=== PATIENT | female | born 1955 | race Caucasian/White ===

== ENCOUNTER → 2021-03-11 14:38 | Outpatient (CLI) | payer MEDICARE, BC, SELFPAY ==
--- NOTE | ~2021-03-11 | MMUS_ITS ---
EXAMINATION: MM diagnostic [facility] BI w shabnam, US breast RT limited HISTORY: Right breast pain at 10:00. Bloody discharge. TECHNIQUE: Bilateral full field and right spot ML, MLO and craniocaudal 3-D tomosynthesis images were performed and synthetic 2-D images were generated. CAD analysis was submitted and interpreted. High resolution right upper outer quadrant breast ultrasound was performed. COMPARISON: 02/10/2019 diagnostic right mammogram and limited right breast ultrasound examination 11/24/2018, 08/17/2017 bilateral digital screening mammogram examinations BREAST PARENCHYMAL COMPOSITION: There are scattered areas of fibroglandular density. FINDINGS: MAMMOGRAPHIC FINDINGS: Focal mild architectural distortion is noted at area of previous biopsy of right breast, upper outer quadrant, likely postoperative scarring. No suspicious mass or architectural distortion, malignant calcification, skin thickening or retractio n or significant new or developing density of either breast is detected otherwise. ULTRASOUND: No suspicious mass or shadowing is detected in the upper outer quadrant of the right breast. IMPRESSION: 1. No mammographic evidence of malignancy 2. Routine annual mammographic screening is recommended. BI-RADS Category 2: Benign finding(s). Reviewed, dictated and finalized at location A. IMPRESSION: 1. No mammographic evidence of malignancy 2. Routine annual mammographic screening is recommended. BI-RADS Category 2: Benign finding(s).
== END ==
PROVIDERS: Visit Provider Obstetrics & Gynecology
DX: N64.52 Nipple discharge (principal)
CPT/HCPCS: 76642; 77062; 77066; G0279

== ENCOUNTER 2022-04-28 10:23 | Outpatient (CLI) | payer MEDICARE, SELFPAY ==
--- NOTE | ~2022-04-28 | MM_ITS ---
EXAMINATION: MM screening [facility] BI w shabnam HISTORY: Screening mammogram TECHNIQUE: Craniocaudal and mediolateral oblique 3-D tomosynthesis images were obtained and synthetic 2-D images were generated. CAD analysis was submitted and interpreted. COMPARISON: 03/11/2021, 02/10/2019, 11/24/2018, 08/17/2017 BREAST PARENCHYMAL COMPOSITION: There are scattered areas of fibroglandular density. FINDINGS: A stable focal asymmetry is present in the middle third of the lower right breast. There is no suspicious mass, calcification, or architectural distortion to suggest malignancy in either breas t. There has been no suspicious interval change. IMPRESSION: 1. No mammographic evidence of malignancy. 2. Recommend routine screening mammography in one year. BI-RADS Category 2: Benign finding(s). Reviewed, dictated and finalized at location A.
== END 2022-04-28 10:24 | disposition home or self-care (01) ==
PROVIDERS: Visit Provider Obstetrics & Gynecology
DX: Z12.31 Encounter for screening mammogram for malignant neoplasm of breast (principal)
CPT/HCPCS: 77063; 77067

== ENCOUNTER 2022-06-24 09:53 | Outpatient (CLI) | payer MEDICARE, SELFPAY ==
--- NOTE | 2022-06-24 | ECG_ITS ---
Measurements Intervals [place] Rate: 66 P: 28 IN: 138 QRS: 14 QRSD: 90 T: 44 QT: 380 QTc: 399 Interpretive Statements SINUS RHYTHM NORMAL ECG NO PREVIOUS ECG AVAILABLE FOR COMPARISON Electronically Signed On 06-24-2022 12:40:58 CDT by Zhou Martin D.O.
[2022-06-24 10:45] LABS: Albumin Level 4.6 g/dL (3.5-5.1); Estimated Glomerular Filt Rate > 60
== END 2022-06-24 09:54 | disposition home or self-care (01) ==
LOC: ANHLAB 09:59
PROVIDERS: PCP Family Medicine; Visit Provider Orthopaedic Surgery
DX: M17.11 Unilateral primary osteoarthritis, right knee (principal); Z01.818 Encounter for other preprocedural examination
CPT/HCPCS: 36415; 82040; 82565; 93005

== ENCOUNTER 2022-07-29 09:39 | Outpatient (CLI) | payer MEDICARE, SELFPAY ==
[2022-07-29 10:56] LABS: Basophils Percent Auto 0.7 % (0.2-1.2); Eosinophils Absolute Auto 0.2 K/mm3 (0-0.3); Eosinophils Percent Auto 2.9 % (0-4.4); Hematocrit 45.4 % (37.0-47.0); Immature Granulocyte Absolute 0.01 K/mm3 (0.00-0.031); Immature Granulocyte Percent A 0.2 % (0-0.5); Lymphocytes Absolute Auto 1.57 K/mm3 (0.9-3.2); Lymphocytes Percent Auto 28.2 % (18.3-44.2); Mean Corpuscular Hemoglobin 30.4 pg (26-34); Mean Corpuscular Volume 91.9 fl (80-100); Mean Platelet Volume 8.9 fl (7.4-10.4); Monocytes Absolute Auto 0.5 K/mm3 (0.1-0.6); Monocytes Percent Auto 9.3 % (2.6-8.5); Neutrophils Absolute Auto 3.3 K/mm3 (1.3-6.7); Neutrophils Percent Auto 58.7 % (45.5-73.1); Platelet Count Result 203 k/mm3 (150-375); Red Blood Count 4.94 M/mm3 (4.2-5.4); White Blood Count 5.6 K/mm3 (4.5-10.0)
[2022-07-29 11:13] LABS: Albumin Level 4.4 g/dL (3.5-5.1); Estimated Glomerular Filt Rate 55; Glucose 114 mg/dL (65-110)
[2022-07-29 11:16] LABS: Hemoglobin A1C 5.9 % (<5.7)
[2022-07-29 11:17] LABS: Urine Cotinine NEGATIVE
== END 2022-07-29 09:40 | disposition home or self-care (01) ==
LOC: ANHSURGERY 09:44
PROVIDERS: PCP Family Medicine; Visit Provider Orthopaedic Surgery
DX: M17.11 Unilateral primary osteoarthritis, right knee (principal); Z01.818 Encounter for other preprocedural examination
CPT/HCPCS: 80307; 82040; 82565; 82947; 83036; 85025; 87081

== ENCOUNTER 2022-08-27 01:50 | Day surgery (SDC) | payer MEDICARE, SELFPAY ==
--- NOTE | 2022-07-29 09:43 | PC.NURSE ---
PRE-OP INSTRUCTIONS, PLEASE READ CAREFULLY Report to the Outpatient Waiting Room, entrance under the green pavilion located off [facility], at time _0600_ on date _08/27/22_. OR Time: _0730_. PACK A SMALL OVER NIGHT BAG AND LEAVE IN THE CAR ALONG WITH YOUR WALKER Time changes happen often and if your time is changed the preop area will call you the afternoon before. - You and your visitor will be asked to self-screen and do not enter if you have any COVID symptoms. - We encourage only one visitor and NO visitors under age 16 are allowed at this time. Your visitor will receive communication by the phone number that is given day of service. - The patient visitor is requested to social distance or may leave the building when not with patient due to restrictions. - A mask is required within the hospital. - VISITING HOURS 8AM-8PM Patients may have clear liquids (water, carbonated beverages, clear teas, apple juice) until 3 hours prior to surgery (0430 AM) with a maximum of 20 ounces. - No food from midnight until time of surgery Take the following medications with a SIP of water the morning of surgery: _NASAL SPRAY & TYLENOL IF NEEDED_ Medications to discontinue per physician _N/A_, Date to take last dose Please no make-up, nail tajik, hairspray, perfume, deodorant, or body powder the day of surgery. No jewelry (including any body piercings) or valuables the day of surgery, leave them at home. Please take a shower or bath the night before, or the morning of, surgery with an antibacterial soap. Wear comfortable, loose fitting clothing. - Jewelry must be removed prior to entering the operating room. Rings and piercings that are not removed may be cut off. - The hospital will not accept responsibility for valuables. - Please leave all valuables, including medications, at home the day of surgery. If you are going home after surgery, a licensed truck driver heavy must drive you home. - NO public transportation without another adult. - We recommend that an adult stay with you for 24 hours following discharge. - We also recommend that you do not drive, make important decision, drink alcoholic beverages, or take any drugs that were not prescribed by your health care provider for at least 24 hours after your discharge time. Follow any additional instructions given to you from your surgeon. TOTAL JOINT CLASS 08/05/22 @ 10 AM [facility] If you or anyone in your household have experienced Covid symptoms in the past week, please notify your surgeon or the nurse liaison at the phone number below for possible testing. Instructions given to _PT & SPOUSE_and asked if any additional questions and then verbalized understanding. Patient advised to call surgeon office or pre surgery nurse liaison [phone] if any additional questions.
[2022-07-29 10:04] VITALS: BP 130/68; PULSE 74; RESP 18; TEMP 37.2; O2SAT 96; BMI 31.3
[2022-08-27] VITALS (14 sets, daily range): BP systolic 106–135; BP diastolic 50–72; PULSE 54–86; RESP 12–20; TEMP 36.2–37.3; O2SAT 89–100
--- NOTE | ~2022-08-27 | XR_ITS ---
EXAMINATION: XR knee RT 2V DATE: 08/27/2022 09:24 INDICATION: Postoperative evaluation following right total knee arthroplasty. TECHNIQUE: Anteroposterior and lateral views of the right knee were obtained. COMPARISON: 05/20/2022 FINDINGS: Right total knee arthroplasty without patellar resurfacing appears well seated and in near anatomic a lignment. No fractures identified. Expected postoperative subcutaneous and intra-articular gas. IMPRESSION: 1. Right total knee arthroplasty, negative for postoperative purposes. Reviewed, dictated and finalized at location A. AOPERATIVE NEURO TECH
[2022-08-27] MEDS: LACTATED RINGERS 1,000 ML 30 ML IV CONT ×2 (06:45→09:10)
[2022-08-27] MEDS: ACETAMINOPHEN 500 MG TABLET 1000 MG PO (07:00)
[2022-08-27] MEDS: TRANEXAMIC ACID 1,000MG/ISO100 1,000 MG/100 ML BAG 200 MG IVPB (07:00)
--- NOTE | 2022-08-27 07:11 | P.PNAN_ITS ---
Anes - Initial Pre Proc Eval Procedure: Operation Date: 08/27/22 07:30 Proposed Procedures p Right Total Knee Arthroplasty - Dominik Holcomb MD Date/Time: 08/27/22 07:11 Surgeon: Dominik Holcomb MD Pre Op Diagnosis: Prim O A Rt Knee Patient Data Age: 67 Gender: F Height: 1.66 m Weight: 86.7 kg Last Vital Signs Temp 37.2 C 07/29/22 10:04 Pulse 74 07/29/22 10:04 Resp 18 07/29/22 10:04 BP 130/68 07/29/22 10:04 Pulse Ox 96 07/29/22 10:04 O2 Del Method Room Air 07/29/22 10:04 Allergies Allergy/AdvReac Type Severity Reaction Status Date / Time adhesive tape AdvReac SKIN Verified 08/27/22 07:06 IRRITATION Home Medications Medication Instructions Recorded Confirmed Type cetirizine 10 mg capsule (Zyrtec) 10 mg PO DAILY PRN Congestion 05/20/22 08/27/22 History fluticasone propionate 50 1 spray intranasal DAILY PRN 05/20/22 08/27/22 History mcg/actuation nasal Congestion spray,suspension pseudoephedrine HCl 30 mg tablet 30 mg PO Q4-6H PRN Congestion 05/20/22 08/27/22 History (Sudafed) triamcinolone acetonide 0.1 % 1 applic topical BID PRN Skin 05/20/22 08/27/22 History topical cream Irritation acetaminophen 500 mg tablet 1,000 mg PO Q6H PRN pain 07/29/22 08/27/22 History Patient hx anesthesia problems: none Family hx anesthesia problems: none Results Review: All pre-operative results and documents have been reviewed as part of the pre- operative evaluation. [facility] Past Medical History Medical History (Updated 08/27/22 @ 07:12 by Duc Birmingham MD) Arthritis Surgical History Surgical History History of foot surgery Bunion & Hammer Toe History of surgery of uterus (~2014) Uterine Cancer Hx of cervical spine surgery (~1997) Upper Spine/Neck Social History Social History Smoking status: Never smoker Second hand tobacco smoke exposure: No Additional smoking assessment comments: PT DENIES ALL FORMS OF TOBACCO USE Alcohol intake: never Substance use type: does not use Living arrangements: with family Spiritual care concerns: No Anes - Eval Final PreProcedure Day of Procedure 08/27/22 07:11 Patient weight: obese Heart: regular rate and rhythm Lungs: clear to auscultation Airway: Mallampati scale class II Neurological: alert and oriented Last oral intake: >/= 8 hours ASA classification: III Emergent: no Anesthetic plan: proceed Anesthesia type and monitoring: general LMA and standard monitoring Results Review: All pre-operative results and documents have been reviewed as part of the pre- operative evaluation. Informed Consent: The patient's anesthetic plan and its attendant risks and benefits were discussed with the patient/family/POA. Questions were solicited and answers provided to the satisfaction of the patient/family/POA.
--- NOTE | 2022-08-27 07:17 | WPDHPUPDATE1 ---
History and Physical Update Update Date/Time: 08/27/22 07:17 History and Physical has been reviewed, including an updated exam of the patient. There are NO changes in the patient's condition. Risks, benefits, and alternatives have been discussed and questions answered. Patient agrees to proceed with procedure.
[2022-08-27] MEDS: ceFAZolin 2 GM/D5W 50 ML 2 GM/50 ML BAG IVPB ×3 (07:33→23:03)
--- NOTE | 2022-08-27 07:39 | WPDANESPNB ---
Anes - Peripheral Nerve Block Date/Time: 08/27/22 07:39 I have discussed with the patient/family/POA the placement of a peripheral nerve block for post-operative pain management, including associated risks, benefits, complications, and side effects. Alternative methods of post-operative analgesia were detailed. Questions were solicited and answers provided to the satisfaction of the patient/family/POA. Time-Out: A pre-procedural Time-Out was completed immediately before starting the procedure and confirmed: Patient Identification, Site, Procedure, Patient Position and the Availability of Requisite Equipment. Clinical Indications: Acute post-operative pain management requested by the operative surgeon. Nerve Block Insertion Note Anes-nerve block: adductor canal right Patient position: supine Skin prep: chlorhexidine Needle: 22 gauge, stimulating, insulated echogenic needle. Needle length: 80 mm Technique: ultrasound Technique comment: mid2mg [id number] Injectate: bupivacaine 0.5% with epi 5 mcg/ml (30ml no epi) and dexamethasone (mg) (4) Observations: tolerated well Complications: none Procedure start time:: 722 Procedure end time:: 729
[2022-08-27] MEDS: fentaNYL CITRATE INJ (*CRX) 100 MCG/2 ML VIAL 25 MCG IV PUSH ×6 (09:17→10:12)
--- NOTE | 2022-08-27 10:28 | P.OP_ITS ---
Procedure Note - Detailed Date of Procedure 08/27/22 Pre-op Diagnosis Prim O A Rt Knee Post-op Diagnosis Same Procedure Performed Total knee arthroplasty, right. Surgeon Dominik Holcomb MD Item Repair Manager Anjana Hunt PA-C Anesthesia General and Regional (subsartorial block) Findings Excellent bone quality. Mild medial release. 1mm downsize of the femur. 3 degree external rotation on the femur. 5 degree valgus. 8 mm distal femoral resection. 5 degree posterior slope. Description of Procedure The patient was brought to the operating room. A general anesthetic was administered. The leg was prepped and draped in the usual sterile fashion. The limb was elevated and the tourniquet inflated to 300 mmHg. A longitudinal incision was created along the medial border of the patella and patellar tendon, and a trivector approach to the knee was performed. A mild medial release was taken. The knee was then flexed. The osteophytes were carefully removed. The intramedullary guide was placed in the femoral canal. The distal femoral resection was then taken with the oscillating saw. The collateral ligaments were carefully protected. The tibia was carefully exposed. The jig was applied, and the proximal tibia was resected according to preoperative plan. The knee was balanced in extension. Appropriate releases were taken where needed. The anterior cruciate ligament and meniscal remnants were removed. The posterior cruciate ligament was preserved. The patella was denervated, and peripatellar osteophytes removed. The femur was sized and rotation assessed using a combination of gap balancing, posterior referencing, and the AP axis. The 4 in 1 cutting block was used to finish the femoral cuts after equal gaps were assured. The osteophytes were carefully removed from the back of the knee. The knee was copiously irrigated with antibiotic solution periodically throughout the procedure. The meniscal remnants were removed. The spacer block was used to confirm equal flexion and extension gaps. No further releases were needed. The tibia was sized and broached. The bony surfaces were prepared for cementing with pulsatile lavage. The real tibia was cemented into position. The femur was press-fit. Excess cement was carefully removed. Patellar tracking was carefully assessed. No additional releases were required. Copious irrigation then performed. The wound was closed with #1 Vicryl suture, #2, 2-0, and 3-0 barbed suture, followed by Steri-Strips. A sterile bulky dressing was applied. Meticulous hemostasis was maintained throughout the procedure, and the bipolar cautery device was used. The pain relieving mixture was injected into the periarticular tissues during the procedure. There were no complications. The patient was extubated and brought to the recovery room in stable condition after the application of sterile dressing with Florencio bandage. Implants [employer] Triathlon knee system, low profile cemented tibia size 5, press-fit cruciate retaining femoral component size 4 ,and an 11 mm cruciate retaining polyethylene insert. Estimated Blood Loss 200 Drains No Pathology None sent Complications No immediate complications Condition Stable Disposition PACU [facility] Billing Surgery - Charge Forward: Surgery Billing
--- NOTE | 2022-08-27 10:35 | PC.NURSE ---
This patient, Stacie Licona, was admitted to 2 Medical Room 251-01. Patient/family oriented to hospital policies and general routines including ID bracelet, bed and alarms, visiting hours, pain management, procedures, bathroom and other care routines, personal items, smoking policy, room service/diet, and visiting hours. Information on how to activate the Rapid Response Team has been discussed. Patient/Family are encouraged to report perceived risks to care and to ask questions if they do not understand what they are told or what they should do.
[2022-08-27] MEDS: ONDANSETRON INJ 4 MG/2 ML VIAL IV PUSH (10:49)
[2022-08-27] MEDS: SODIUM CHLORIDE 0.9% IV 1,000 ML 125 ML IV CONT (10:49)
[2022-08-27] MEDS: ASPIRIN 81 MG ENTERIC TABLET PO (12:05)
[2022-08-27] MEDS: SENNA/DOCUSATE SODIUM TABLET 2 TAB PO (12:05)
[2022-08-27] MEDS: FAMOTIDINE 20 MG TABLET PO ×2 (12:06→20:21)
[2022-08-27] MEDS: MELOXICAM 7.5 MG TABLET PO (12:06)
--- NOTE | 2022-08-27 13:40 | PCOTNOTE ---
Attempted to see pt. for occupational therapy evaluation. Pt. nauseous and vomiting at this time and unable to safely participate in evaluation at this time. Nursing aware and following up with pt. Pt. returned to bed.
[2022-08-27] MEDS: traMADol HCL (*CRX) 50 MG TABLET PO (20:21)
[2022-08-28 00:16] VITALS: BP 109/52; PULSE 78; RESP 20; TEMP 36.6; O2SAT 100
[2022-08-28 04:15] VITALS: BP 107/52; PULSE 79; RESP 16; TEMP 37; O2SAT 98
[2022-08-28 05:57] LABS: Anion Gap 13 mmol/L (8-16); Blood Urea Nitrogen 10 mg/dL (7-17); Calcium 8.1 mg/dL (8.4-10.2); Carbon Dioxide 24 mmol/L (22-30); Chloride 106 mmol/L (98-107); Estimated CRCL calculation 62 ml/min; Estimated Glomerular Filt Rate > 60; Glucose 149 mg/dL (65-110); Potassium 3.5 mmol/L (3.4-5.0); Sodium 143 mmol/L (137-145)
[2022-08-28] MEDS: ceFAZolin 2 GM/D5W 50 ML 2 GM/50 ML BAG IVPB (06:06)
[2022-08-28 06:20] LABS: Basophils Percent Auto 0.2 % (0.2-1.2); Hematocrit 37.8 % (37.0-47.0); Hemoglobin 12.1 g/dL (12.0-15.0); Immature Granulocyte Absolute 0.04 K/mm3 (0.00-0.031); Immature Granulocyte Percent A 0.3 % (0-0.5); Lymphocytes Absolute Auto 1.21 K/mm3 (0.9-3.2); Lymphocytes Percent Auto 10.1 % (18.3-44.2); Mean Corpuscular Volume 93.8 fl (80-100); Mean Platelet Volume 9.7 fl (7.4-10.4); Monocytes Absolute Auto 0.8 K/mm3 (0.1-0.6); Monocytes Percent Auto 6.5 % (2.6-8.5); Neutrophils Absolute Auto 9.9 K/mm3 (1.3-6.7); Neutrophils Percent Auto 82.9 % (45.5-73.1); Platelet Count Result 160 k/mm3 (150-375); Red Blood Count 4.03 M/mm3 (4.2-5.4); Red Cell Distribution Width 12.3 % (11.5-14.5); White Blood Count 11.9 K/mm3 (4.5-10.0)
--- NOTE | 2022-08-28 07:34 | P.PNAN_ITS ---
Anes - Prog Note Post-Op Date/Time: 08/28/22 07:34 Cardiovascular status: normal Respiratory status: normal Airway patency: baseline Mental status: baseline Post-Op hydration status: normal Vital Signs: Last Vital Signs Temp 98.6 F 08/28/22 04:15 Pulse 79 08/28/22 04:15 Resp 16 08/28/22 04:15 BP 107/52 L 08/28/22 04:15 Pulse Ox 98 08/28/22 04:15 O2 Del Method Room Air 08/27/22 20:00 O2 Flow Rate 2 08/27/22 10:57 Pain Score (VAS): 0/10 I/O: Intake & Output 08/27/22 08/27/22 08/28/22 15:59 23:59 07:59 Intake Total 572 440 322 Output Total 800 Balance 572 440 -478 Laboratory Tests 08/28/22 05:04 08/28/22 05:04 08/27/22 08/28/22 08/28/22 06:47 05:04 05:04 WBC 11.9 H RBC 4.03 L Hgb 12.1 Hct 37.8 MCV 93.8 MCH 30.0 MCHC 32.0 RDW 12.3 Plt Count 160 MPV 9.7 Immature Gran % (Auto) 0.3 Neut % (Auto) 82.9 H Lymph % (Auto) 10.1 L [place] % (Auto) 6.5 Eos % (Auto) 0.0 Baso % (Auto) 0.2 Lymph # (Auto) 1.21 [place] # (Auto) 0.8 H Eos # (Auto) 0.0 Baso # (Auto) 0.0 Abs Immat Gran (auto) 0.04 H Absolute Neuts (auto) 9.9 H Absolute Nucleated RBC 0.0 Nucleated RBC % 0.0 Sodium 143 Potassium 3.5 Chloride 106 Carbon Dioxide 24 Anion Gap 13 BUN 10 Creatinine 0.80 Estim Creat Clear Calc 62 Estimated GFR > 60 Glucose 149 H Calcium 8.1 L Blood Type O Positive Antibody Screen Negative Post-procedural complaints: none Patient Feedback: Patient satisfied with anesthetic care.
[2022-08-28] MEDS: SENNA/DOCUSATE SODIUM TABLET 2 TAB PO (08:05)
[2022-08-28] MEDS: ASPIRIN 81 MG ENTERIC TABLET PO (08:05)
[2022-08-28] MEDS: predniSONE 5 MG TABLET PO (08:05)
[2022-08-28] MEDS: FAMOTIDINE 20 MG TABLET PO (08:05)
[2022-08-28] MEDS: MELOXICAM 7.5 MG TABLET PO (08:06)
[2022-08-28 09:05] VITALS: BP 103/48; PULSE 81; RESP 18; TEMP 36.7; O2SAT 100
--- NOTE | 2022-08-28 09:21 | PM.DS ---
DS: Admitting Diagnosis Discharge Date 08/28/22 Admitting Diagnosis OA knee Right DS: Discharge Diagnosis Discharge Diagnosis (1) Status post total right knee replacement: Code(s): Z96.651 - Presence of right artificial knee joint Status: Acute Plan Postop day 1: Right total knee arthroplasty. Patient tolerated procedure well. No complications. Pain manageable with pain medication. No numbness or tingling. We had a lengthy discussion regarding postoperative wound care, limitations, expectations, and exercises. Patient shows good understanding. She has had initial physical therapy and is tolerating it well. DVT prophylaxis: 81 mg baby aspirin b.i.d. for 14 days. Pain medication: Percocet. Meloxicam. Prednisone. Patient has followup appointment with Dr. Holcomb in 3 weeks. DS: Summary Hospital Course Reason for hospitalization: Total knee arthroplasty Hospital Course: Patient tolerated procedure well. Has had initial PT/OT. No complications. Pain well managed. Status at Discharge Functional status at discharge: uses cane/walker Overall status at discharge: patient is progressing back to baseline Time Spent with Patient Time attestation: Total time spent providing and/or coordinating discharge services: Exam Narrative: Overweight 67 y/o female. Resting comfortably in chair. No acute distress. A&O x3. Wearing compression socks bilaterally. Dressing intact with no drainage. Moderate swelling. No ecchymosis. No erythema. No hematoma. Good early range of motion. Calf nontender. Neurologic status intact. No varicosities. Distal pulses palpable. DS: Data Data Completed and Pending Labs on day of discharge: Labs from last 24 hours 08/28/22 08/28/22 05:04 05:04 WBC 11.9 H RBC 4.03 L Hgb 12.1 Hct 37.8 MCV 93.8 MCH 30.0 MCHC 32.0 RDW 12.3 Plt Count 160 MPV 9.7 Immature Gran % (Auto) 0.3 Neut % (Auto) 82.9 H Lymph % (Auto) 10.1 L [place] % (Auto) 6.5 Eos % (Auto) 0.0 Baso % (Auto) 0.2 Lymph # (Auto) 1.21 [place] # (Auto) 0.8 H Eos # (Auto) 0.0 Baso # (Auto) 0.0 Abs Immat Gran (auto) 0.04 H Absolute Neuts (auto) 9.9 H Absolute Nucleated RBC 0.0 Nucleated RBC % 0.0 Sodium 143 Potassium 3.5 Chloride 106 Carbon Dioxide 24 Anion Gap 13 BUN 10 Creatinine 0.80 Estim Creat Clear Calc 62 Estimated GFR > 60 Glucose 149 H Calcium 8.1 L Discharge Plan Discharge Patient Disposition: Home, Self-Care Discharge Instructions: See green instruction sheets Stand Alone Forms: General Discharge Instructions Follow-up/Referrals: Anjana Hunt PA [Physician Assistant Center Director] - Discharge Medications: New meloxicam 15 mg tablet 15 mg PO DAILY Qty: 30 0RF Rx Instructions: Cut in half. Take 1/2 in morning and 1/2 at night. Take with food. Stop if stomach upset. prednisone 5 mg tablet 5 mg PO DAILY 21 Days Qty: 21 0RF aspirin 81 mg tablet,delayed release (DR/EC) 81 mg PO BID 14 Days Qty: 28 0RF oxycodone-acetaminophen 5-325 mg tablet 1 - 2 tablet PO Q4-6H MDD 6 PRN (Reason: pain) Qty: 30 0RF Continued triamcinolone acetonide 0.1 % cream 1 applic topical BID PRN (Reason: Skin Irritation) fluticasone propionate 50 mcg/actuation spray,suspension 1 spray intranasal DAILY PRN (Reason: Congestion) Rx Instructions: administer into each nostril pseudoephedrine HCl [Sudafed] 30 mg tablet 30 mg PO Q4-6H PRN (Reason: Congestion) Rx Instructions: DNExceed 4 doses/24h Zyrtec 10 mg capsule 10 mg PO DAILY PRN (Reason: Congestion) acetaminophen 500 mg Tablet 1,000 mg PO Q6H PRN (Reason: pain)
== END 2022-08-28 10:58 | disposition home or self-care (01) ==
LOC: ANHSURGERY 05:57 → ANH2MED 10:40
PROVIDERS: Physician Assistant Surgical; PCP Family Medicine; Visit Provider Orthopaedic Surgery
PROC: (CPT 27447; principal; 2022-08-27 07:30)
DX: M17.11 Unilateral primary osteoarthritis, right knee (principal); G89.18 Other acute postprocedural pain; E66.9 Obesity, unspecified; Z68.30 Body mass index [BMI] 30.0-30.9, adult
CPT/HCPCS: 27447; 64447; 36415; 73560; 80048; 85025; 86850; 86900; 86901; 97110; 97161; 97165; 97530; A9270; C1713; C1776; J0131; J0171; J0690; J1100; J1170; J1885; J2250; J2270; J2405; J2704; J2795; J3010; J7030; J7120; J7512

== ENCOUNTER 2022-09-16 10:20 | Emergency (ER) | payer MEDICARE, SELFPAY ==
[2022-09-16] VITALS (35 sets, daily range): BP systolic 126–150; BP diastolic 49–79; PULSE 72–83; RESP 12–20; TEMP 36.5; O2SAT 96–100
--- NOTE | ~2022-09-16 | XR_ITS ---
EXAMINATION: XR chest 1V portable 09/16/2022 12:54 INDICATION: Chest tightness PROCEDURE: AP portable chest COMPARISON: No prior studies for comparison. FINDINGS: The lungs are clear. The cardiomediastinal silhouette is within normal limits. There are no pleural effusions. There is no pneumothorax suspected. IMPRESSION: 1: NO ACUTE CARDIOPULMONARY DISEASE. Reviewed, dictated and finalized at location A. [employer]
--- NOTE | ~2022-09-16 | CT_ITS ---
EXAMINATION: CTA chest PE protocol DATE: 09/16/2022 14:35 INDICATION: Chest and shoulder pain. TECHNIQUE: Computed tomography angiography (CTA) of the chest was performed with 100 mL Omnipaque-350 intravenous contrast timed to evaluate the pulmonary arteries. Coronal maximum intensity projection 3D-reconstructions were created by the technologist. Automated exposure control and iterative reconst ruction technique were employed. The dose-length product was 390.74 mGy-cm. COMPARISON: None. FINDINGS: There is mild scarring at the lung apices. There is mild atelectasis bilaterally. No pleura l effusion. There is an 8 mm nodule in left thyroid lobe, likely not clinically significant. The hear t size is normal. No pericardial effusion. There is no pulmonary embolus. There is moderate thoracic spondylosis. There is a hemangioma in T6 vertebral body. IMPRESSION: 1. No pulmonary embolus. Reviewed, dictated and finalized at location A. RITY GUARD IMPRESSION: 1. No pulmonary embolus.
--- NOTE | 2022-09-16 10:54 | ECG_ITS ---
Measurements Intervals [place] Rate: 77 P: 3 TN: 133 QRS: 17 QRSD: 81 T: 55 QT: 344 QTc: 390 Interpretive Statements SINUS RHYTHM NORMAL ECG COMPARED TO ECG 06/24/2022 10:40:21 NO SIGNIFICANT CHANGES Electronically Signed On 09-16-2022 12:38:34 PAPER BOX CUTTER by Zhou Martin D.O.
--- NOTE | 2022-09-16 11:40 | PC.NURSE ---
Patient denies any chest pain or SOB at this time. Patient resting comfortably in bed at this time
--- NOTE | 2022-09-16 12:34 | ED.GENADULT ---
HPI - General Adult General Chief complaint: Extremity Injury, Upper Stated complaint: Left arm/shoulder pain x 2 days Time Seen by Provider: 09/16/22 12:03 History of Present Illness HPI narrative: Patient is a 67-year-old female presenting with left shoulder pain and an episode of chest tightness. Patient states that she recently had a knee replacement surgery about 3 to 4 weeks ago. She has been doing physical therapy for this. States that she has had some left shoulder pain for the last several days that she thinks is related to her therapy. States that there is an area of tenderness on the lateral aspect of her left arm. States that she woke up in the middle of sleep last night with a sensation of an innertube squeezing around her upper abdomen. States it lasted for several seconds. Denies shortness of breath. Patient mention this to her physical therapist this morning who advised that she speak to her PCP who advised she come to the ER for evaluation. Patient states that she continues to have some left shoulder soreness but has not had recurrence of chest or abdominal squeezing. Denies any episodes of shortness of breath. Denies fevers or chills, headache, numbness or weakness, chest pain, shortness of breath, cough, nausea or vomiting, leg swelling. Related Data Home Medications Medication Instructions Recorded Confirmed cetirizine 10 mg capsule (Zyrtec) 10 mg PO DAILY PRN Congestion 05/20/22 08/27/22 fluticasone propionate 50 1 spray intranasal DAILY PRN 05/20/22 08/27/22 mcg/actuation nasal Congestion spray,suspension pseudoephedrine HCl 30 mg tablet 30 mg PO Q4-6H PRN Congestion 05/20/22 08/27/22 (Sudafed) triamcinolone acetonide 0.1 % 1 applic topical BID PRN Skin 05/20/22 08/27/22 topical cream Irritation acetaminophen 500 mg tablet 1,000 mg PO Q6H PRN pain 07/29/22 08/27/22 Allergies Allergy/AdvReac Type Severity Reaction Status Date / Time adhesive tape AdvReac SKIN Verified 09/16/22 10:58 IRRITATION Review of Systems Review of Systems: All systems reviewed & are unremarkable except as noted in HPI and below PMFSH Past Medical History Medical History Arthritis Surgical History Surgical History History of foot surgery Bunion & Hammer Toe History of surgery of uterus (~2014) Uterine Cancer Hx of cervical spine surgery (~1997) Upper Spine/Neck Social History Social History Smoking status: Never smoker Second hand tobacco smoke exposure: No Additional smoking assessment comments: PT DENIES ALL FORMS OF TOBACCO USE Alcohol intake: never Substance use: never Substance use type: does not use Lack of Transportation: No Lack of Food: Never True Current Housing: I Have Housing Concerned About Future Housing: No Difficulty Paying Gas/Electric Bills: No Difficulty Paying for Meds: No Currently Unemployed: No Education: High School Diploma/GED Difficulty w/ Childcare or Family Care: No Spiritual care concerns: No Exam Narrative: GENERAL: Well-appearing, well-nourished, and in no acute distress. HEAD: Normocephalic, atraumatic. EYES: PERRLA and EOMI. ENT: Nares clear, no rhinorrhea or epistaxis. Mucous membranes moist. NECK: Supple. CHEST: Clear to auscultation. No respiratory distress. HEART: Regular rate and rhythm. No murmur heard. Normal peripheral pulses. ABDOMEN: Soft, nontender, nondistended, normal active bowel sounds. EXTREMITIES: Area of tenderness along the lateral aspect of left upper arm, no ecchymosis; compression stockings on bilateral lower extremities SKIN: Warm, dry, no rash. NEURO: No focal deficits. Alert and oriented x3. PSYCH: Normal mood and affect. Course Vital Signs Vital signs: Vital Signs Temperature 97.7 F 09/16/22 10:54 Pulse Rate 81 09/16
[2022-09-16 12:55] LABS: Basophils Absolute Auto 0.1 K/mm3 (0.0-0.1); Basophils Percent Auto 0.7 % (0.2-1.2); Eosinophils Absolute Auto 0.1 K/mm3 (0-0.3); Eosinophils Percent Auto 1.1 % (0-4.4); Hematocrit 39.5 % (37.0-47.0); Immature Granulocyte Absolute 0.01 K/mm3 (0.00-0.031); Immature Granulocyte Percent A 0.1 % (0-0.5); Lymphocytes Absolute Auto 1.48 K/mm3 (0.9-3.2); Mean Corpuscular HGB Conc 32.9 g/dl (32-36); Mean Corpuscular Hemoglobin 29.9 pg (26-34); Mean Corpuscular Volume 90.8 fl (80-100); Mean Platelet Volume 8.7 fl (7.4-10.4); Monocytes Absolute Auto 0.4 K/mm3 (0.1-0.6); Monocytes Percent Auto 5.3 % (2.6-8.5); Neutrophils Absolute Auto 5.4 K/mm3 (1.3-6.7); Neutrophils Percent Auto 72.8 % (45.5-73.1); Platelet Count Result 243 k/mm3 (150-375); Red Blood Count 4.35 M/mm3 (4.2-5.4); Red Cell Distribution Width 12.5 % (11.5-14.5); White Blood Count 7.4 K/mm3 (4.5-10.0)
[2022-09-16 13:06] LABS: Alanine Aminotransferase 24 U/L (6-35); Albumin Level 4.2 g/dL (3.5-5.1); Alkaline Phosphatase 116 U/L (38-126); Anion Gap 7 mmol/L (8-16); Aspartate Amino Transferase 33 U/L (14-36); Bilirubin,Total 0.6 mg/dL (0.2-1.3); Blood Urea Nitrogen 19 mg/dL (7-17); Calcium 9.1 mg/dL (8.4-10.2); Carbon Dioxide 28 mmol/L (22-30); Chloride 106 mmol/L (98-107); Estimated CRCL calculation 62 ml/min; Estimated Glomerular Filt Rate > 60; Glucose 112 mg/dL (65-110); Potassium 4.4 mmol/L (3.4-5.0); Sodium 141 mmol/L (137-145)
[2022-09-16 13:07] LABS: Partial Thromboplastin Time 25.1 SECONDS (22.3-36.8); Prothrombin Time 13.1 Seconds (11.1-14.7)
[2022-09-16 13:15] LABS: D Dimer 1.88 ug/mL (<0.48)
[2022-09-16 13:16] LABS: Troponin I < 0.012 ng/mL (0.000-0.034)
== END 2022-09-16 19:00 | disposition home or self-care (01) ==
PROVIDERS: Emergency Provider Emergency Medicine; PCP Family Medicine
DX: R07.89 Other chest pain (principal); Z96.651 Presence of right artificial knee joint; M19.90 Unspecified osteoarthritis, unspecified site
CPT/HCPCS: 36415; 71045; 71275; 80053; 84484; 85025; 85380; 85610; 85730; 93005; 99284; Q9967

== ENCOUNTER 2023-07-29 07:35 | Outpatient (CLI) | payer MEDICARE, SELFPAY ==
--- NOTE | ~2023-07-29 | MM_ITS ---
EXAMINATION: MM screening gracy BI w shabnam HISTORY: Screening mammogram TECHNIQUE: Craniocaudal and mediolateral oblique 3-D tomosynthesis images were obtained and synthetic 2-D images were generated. CAD analysis was submitted and interpreted. COMPARISON: 04/28/2022 bilateral screening mammogram 03/11/2021 diagnostic bilateral mammogram and limited right breast ultrasound BREAST PARENCHYMAL COMPOSITION: There are scattered areas of fibroglandular density. FINDINGS: Biopsy marker on the right; history of prior benign right breast biopsy. Stable mild fibrog landular asymmetry. Scattered bilateral benign calcifications. There is no evidence of suspicious mas s, calcification, or architectural distortion to suggest malignancy in either breast. There has been no suspicious interval change. IMPRESSION: 1. No mammographic evidence of malignancy. 2. Recommend routine screening mammography in one year. BI-RADS Category 2: Benign finding(s). Reviewed, dictated and finalized at location A.
== END 2023-07-29 07:36 | disposition home or self-care (01) ==
PROVIDERS: PCP Family Medicine; Visit Provider Obstetrics & Gynecology
DX: Z12.31 Encounter for screening mammogram for malignant neoplasm of breast (principal)
CPT/HCPCS: 77063; 77067

== ENCOUNTER 2024-02-21 14:12 | Outpatient (CLI) | payer MEDICARE, SELFPAY ==
--- NOTE | ~2024-02-21 | XR_ITS ---
EXAM: XR knee RT 3V DATE: 02/21/2024 14:36 HISTORY: 1 YEAR FU ON KNEE REPLACEMENT . COMPARISON: 08/27/2023. FINDINGS: Normal mineralization. No fracture or dislocation. No lytic or blastic lesion. Uncomplicat ed knee arthroplasty hardware. Patellar and quadriceps enthesopathy. No erosion or periosteal change. Soft tissues within normal limits. IMPRESSION: No acute osseous finding in the right knee. No radiographic evidence of hardware related complication. Reviewed, dictated and finalized at location K. IMPRESSION: No acute osseous finding in the right knee. No radiographic evidenc e of hardware related complication.
== END 2024-02-21 14:13 | disposition home or self-care (01) ==
PROVIDERS: PCP Nurse Practitioner Family; Visit Provider Orthopaedic Surgery
DX: Z96.651 Presence of right artificial knee joint (principal)
CPT/HCPCS: 73562

== ENCOUNTER 2024-05-01 10:56 | Outpatient (CLI) | payer MEDICARE, SELFPAY ==
--- NOTE | ~2024-05-01 | XR_ITS ---
Right Knee Technique: AP, lateral, and sunrise views were obtained. Clinical History: Orthopedic follow-up COMPARISON: 02/21/2024 Findings: No fracture or dislocation is seen. Right knee arthroplasty is unchanged. Soft tissues are unremarkable. No joint effusion is seen. Impression: Right knee arthroplasty in place. No complications seen. Reviewed, dictated and finalized at location . Impression: Right knee arthroplasty in place. No complications seen.
--- NOTE | ~2024-05-01 | XR_ITS ---
AP view of the pelvis and AP and lateral views of the left hip Clinical history: Pain Findings: No acute fracture or dislocation is seen. Osseous alignment is anatomic. Bilateral hip and SI joint spaces are preserved. Soft tissues are unremarkable. Impression: No significant abnormality is seen. Reviewed, dictated and finalized at location . Impression: No significant abnormality is seen.
== END 2024-05-01 10:57 | disposition home or self-care (01) ==
PROVIDERS: PCP Family Medicine; Visit Provider Orthopaedic Surgery
DX: M25.552 Pain in left hip (principal); Z96.651 Presence of right artificial knee joint
CPT/HCPCS: 73502; 73562

== ENCOUNTER 2024-05-12 11:22 | Outpatient (CLI) | payer MEDICARE, SELFPAY ==
--- NOTE | ~2024-05-12 | MR_ITS ---
MRI of the lumbar spine Clinical History: Radiculopathy Technique: Axial T2-weighted images, and sagittal T1-weighted, T2-weighted, and T2 fat-sat images wer e acquired. Findings: There is no fracture or subluxation of the lumbar spine. Vertebral bodies maintain normal h eight and alignment. No suspicious bone marrow signal abnormality seen. At L1-L2, there is minimal degenerative disc change. There is minimal facet arthropathy. No central c anal stenosis or definite neural foraminal narrowing. At L2-L3, there is moderate degenerative disc narrowing. There is moderate facet arthropathy. No cent ral canal stenosis or neural foraminal narrowing. L3-L4, there is mild degenerative disc change with mild disc bulge and moderate facet arthropathy. No central canal stenosis. There is probable minimal bilateral neural foraminal narrowing. At L4-L5, there is moderate degenerative disc narrowing. There is mild disc bulge and moderate to sev ere facet arthropathy. No central canal stenosis. There is mild bilateral neural foraminal narrowing. At L5-S1, there is minimal disc bulge with moderate to advanced facet arthropathy. No central canal s tenosis. There is moderate to severe left neural foraminal narrowing, and minimal right neural forami nal narrowing. Paravertebral soft tissues are unremarkable. Impression: Ynan-xo-[id number] degenerative spondylosis, as above. Reviewed, dictated and finalized at [facility]. Impression: Pstj-iq-ovdmsmih degenerative spondylosis, as above.
== END 2024-05-12 11:23 ==
LOC: GOSHIMG 11:23
PROVIDERS: PCP Family Medicine; Visit Provider Orthopaedic Surgery
DX: M47.896 Other spondylosis, lumbar region (principal)
CPT/HCPCS: 72148

== ENCOUNTER 2024-08-07 08:06 | Outpatient (CLI) | payer MEDICARE, SELFPAY ==
--- NOTE | ~2024-08-07 | MM_ITS ---
EXAMINATION: MM screening gracy BI w shabnam HISTORY: Screening TECHNIQUE: Craniocaudal and mediolateral oblique 3-D tomosynthesis images were obtained and synthetic 2-D images were generated. CAD analysis was submitted and interpreted. COMPARISON: Comparison to multiple prior studies sequentially, with oldest reviewed study dated 04/2019. BREAST PARENCHYMAL COMPOSITION: Not dense: There are scattered areas of fibroglandular density. FINDINGS: There is a developing focal asymmetry in the upper outer quadrant of the left breast, middl e third. There are no suspicious calcifications or architectural distortion. IMPRESSION: 1. Developing focal left breast asymmetry. 2. Additional mammographic views and possible breast ultrasound are recommended. BI-RADS Category 0: Incomplete: Needs additional imaging evaluation. Reviewed, dictated and finalized at location B. IMPRESSION: 1. Developing focal left breast asymmetry. 2. Additional mammographic views and possible breast ultrasound are recommended . BI-RADS Category 0: Incomplete: Needs additional imaging evaluation.
== END 2024-08-07 08:07 | disposition home or self-care (01) ==
LOC: ANHIMG 08:08
PROVIDERS: PCP Family Medicine; Visit Provider Obstetrics & Gynecology
DX: Z12.31 Encounter for screening mammogram for malignant neoplasm of breast (principal); R92.8 Other abnormal and inconclusive findings on diagnostic imaging of breast
CPT/HCPCS: 77063; 77067

== ENCOUNTER 2024-08-23 13:27 | Outpatient (CLI) | payer MEDICARE, SELFPAY ==
--- NOTE | 2024-08-23 14:00 | NEURO_ITS ---
Impression: # Complains of numbness of hands. # Bilateral Carpal Tunnel Syndrome, sensory more than motor, left more than right. # No ulnar neuropathy. # Normal needle/EMG exam. Nerve Conduction Studies Anti Sensory Summary Table Stim Site NR Peak (ms) P-T Amp (?V) Site1 Site2 Delta-P (ms) Dist (cm) Octavio (m/s) Left Median Anti Sensory (2-3nd Digit) Wrist 10.0 4.9 Wrist 2-3nd Digit 10.0 14.0 14 Wrist 8.3 7.9 Wrist 2-3nd Digit 10.0 14.0 14 Right Median Anti Sensory (2-3nd Digit) Wrist 4.2 25.4 Wrist 2-3nd Digit 4.2 14.0 33 Wrist 5.8 21.3 Wrist 2-3nd Digit 4.2 14.0 33 Left Radial Anti Sensory (Base 1st Digit) Wrist 2.2 20.7 Wrist Base 1st Digit 2.2 0.0 Right Radial Anti Sensory (Base 1st Digit) Wrist 2.3 25.8 Wrist Base 1st Digit 2.3 0.0 Left Ulnar Anti Sensory (5th Digit) Wrist 2.3 61.7 Wrist 5th Digit 2.3 14.0 61 Right Ulnar Anti Sensory (5th Digit) Wrist 2.5 67.4 Wrist 5th Digit 2.5 14.0 56 Motor Summary Table Stim Site NR Onset (ms) O-P Amp (mV) Site1 Site2 Delta-0 (ms) Dist (cm) Octavio (m/s) Left Median Motor (Abd Poll Brev) Wrist 3.8 5.5 Elbow Wrist 4.9 29.0 59 Elbow 8.7 6.3 Right Median Motor (Abd Poll Brev) Wrist 4.0 9.6 Elbow Wrist 4.7 28.0 60 Elbow 8.7 5.4 Left Ulnar Motor (Abd Dig Minimi) Wrist 2.2 7.0 A Elbow Wrist 4.8 29.0 60 A Elbow 7.0 6.0 Right Ulnar Motor (Abd Dig Minimi) Wrist 2.2 8.4 A Elbow Wrist 4.9 28.0 57 A Elbow 7.1 7.2 F Wave Studies NR F-Lat (ms) L-R F-Lat (ms) Left Median (Mrkrs) (Abd Poll Brev) 28.36 1.54 Right Median (Mrkrs) (Abd Poll Brev) 29.90 1.54 Left Ulnar (Mrkrs) (Abd Dig Min) 28.79 1.53 Right Ulnar (Mrkrs) (Abd Dig Min) 27.26 1.53 EMG Side Muscle Nerve Root Ins Act Fibs Amp Dur Recrt Comment Right 1stDorInt Ulnar C8-T1 Nml Nml Nml Nml Nml Right Ext Indicis Radial (Post Int) C7-8 Nml Nml Nml Nml Nml Right Ext Digitorum Radial (Post Int) C7-8 Nml Nml Nml Nml Nml Right BrachioRad Radial C5-6 Nml Nml Nml Nml Nml Right PronatorTeres Median C6-7 Nml Nml Nml Nml Nml Right Abd Poll Brev Median C8-T1 Nml Nml Nml Nml Nml Right ABD Dig Min Ulnar C8-T1 Nml Nml Nml Nml Nml Left 1stDorInt Ulnar C8-T1 Nml Nml Nml Nml Nml Left Ext Indicis Radial (Post Int) C7-8 Nml Nml Nml Nml Nml Left Ext Digitorum Radial (Post Int) C7-8 Nml Nml Nml Nml Nml Left BrachioRad Radial C5-6 Nml Nml Nml Nml Nml Left PronatorTeres Median C6-7 Nml Nml Nml Nml Nml Left Abd Poll Brev Median C8-T1 Nml Nml Nml Nml Nml Left ABD Dig Min Ulnar C8-T1 Nml Nml Nml Nml Nml MTDD
== END 2024-08-23 13:28 | disposition home or self-care (01) ==
LOC: ANHNEURO 13:28
PROVIDERS: PCP Family Medicine; Visit Provider Nurse Practitioner Family
DX: R20.0 Anesthesia of skin (principal); R20.2 Paresthesia of skin; G56.03 Carpal tunnel syndrome, bilateral upper limbs
CPT/HCPCS: 95886; 95911

== ENCOUNTER 2024-09-21 01:39 | Day surgery (SDC) | payer MEDICARE, SELFPAY ==
--- NOTE | 2024-09-07 13:25 | PC.NURSE ---
Report to the Outpatient Waiting Room, entrance under the green pavilion located off [facility], at time _1230 on date _09/21/24 . Planned Procedure Time: _1330 .? Time changes happen often and if your time is changed the preop area will call you the afternoon before. - You and your visitor will be asked to self-screen and do not enter if you have any COVID symptoms. Please call surgeon if you need to reschedule. - A mask is optional within the hospital at this time. LIGHT BREAKFAST/LUNCH DAY OF SURGERY - Infants may have breast milk until 4 hours before surgery, infant formula 6 hours prior to surgery. - Children will be allowed to drink immediately following surgery.? If applicable, please bring a bottle or sippy cup to assist with drinking. Juice, water, soda, and popsicles are readily available.? For infants on formula, please bring formula the day of surgery.? Pacifiers are allowed. Take only the following medications with a SIP of water on the morning of surgery: ____ROUTINE AM MEDICATIONS DO NOT STOP ANY OF YOUR OTHER PRESCRIPTION MEDICATIONS PRIOR TO SURGERY EXCEPT THE FOLLOWING Medications to discontinue per physician ____HOLD MELOXICAM 7 DAYS PRE OP PER DR AVILA MAY TAKE TYLENOL IF NEEDED FOR PAIN Date to take last dose 09/13/24 Please no make-up, nail armenian, hairspray, perfume, deodorant, or body powder the day of surgery.? No jewelry (including any body piercings) or valuables the day of surgery, leave them at home.? Please take a shower or bath the night before, or the morning of, surgery with an antibacterial soap.? Wear comfortable, loose fitting clothing.? Children are encouraged to wear pajamas. - Jewelry must be removed prior to entering the operating room.? Rings and piercings that are not removed may be cut off. - The hospital will not accept responsibility for valuables.? - Please leave all valuables, including medications, at home the day of surgery. -LOCAL ANESTHESIA MAY DRIVE YOURSELF HOME For Pediatric surgeries, we recommend two adults accompany the child home. Follow any additional instructions given to you from your surgeon. Telephone instructions given to __PT and asked if any additional questions and then verbalized understanding. Patient advised to call surgeon office or pre surgery nurse liaison [phone] if any additional questions.
[2024-09-07 13:28] VITALS: BMI 34.1
[2024-09-21] VITALS (7 sets, daily range): BP systolic 132–157; BP diastolic 64–76; PULSE 80–91; RESP 16–20; TEMP 36.4; O2SAT 96–99; BMI 35.2
--- NOTE | 2024-09-21 13:18 | WPDHPUPDATE1 ---
History and Physical Update Update Date/Time: 09/21/24 13:18 History and Physical has been reviewed, including an updated exam of the patient. There are NO changes in the patient's condition. Risks, benefits, and alternatives have been discussed and questions answered. Patient agrees to proceed with procedure.
[2024-09-21] MEDS: BUPIVACAINE/EPINEPHRINE 0.5% 50 ML VIAL 20 ML INFILTRATE (13:38)
--- NOTE | 2024-09-21 17:07 | W.PM.PROC2 ---
Procedure Note - Detailed Date of Procedure 09/21/24 Pre-op Diagnosis Rt Carpal Tunnel Syndrome Post-op Diagnosis Same Procedure Performed Right Carpal tunnel release Surgeon Dominik Holcomb MD Anesthesia Local Description of Procedure Operative details. After sedation was administer, the hand was prepped and draped in the usual sterile fashion. The proposed incision was marked using typical anatomic landmarks. 12ML 0.5% Marcaine with epinephrine was injected along the incision line and at the distal forearm. The limb was exsanguinated and the tourniquet inflated to 225 millimeters of mercury. A longitudinal incision was taken sharply. Dissection was brought down to the transverse carpal ligament. Under direct vision the ligament was incised sharply. The proximal release was carried out with dissection scissors. The contents of the carpal canal were protected with a [place] elevator. The transverse carpal ligament was confirmed to be widely patent. The wound was closed with interrupted 3-0 Prolene suture. A sterile bulky dressing was placed. Patient was brought to the recovery room in stable condition. Estimated Blood Loss 1 Tourniquet Time Total Tourniquet Time: 3 Pathology None sent Complications No immediate complications Condition Stable Disposition PACU [facility] Billing Surgery - Charge Forward: Surgery Billing
== END 2024-09-21 14:21 | disposition home or self-care (01) ==
PROVIDERS: PCP Family Medicine; Visit Provider Orthopaedic Surgery
PROC: (CPT 64721; principal; 2024-09-21 13:00)
DX: G56.01 Carpal tunnel syndrome, right upper limb (principal)
CPT/HCPCS: 64721

== ENCOUNTER 2024-10-05 00:51 | Day surgery (SDC) | payer MEDICARE, SELFPAY ==
[2024-09-25 14:27] VITALS: BMI 34.1
--- NOTE | 2024-09-25 14:42 | PC.NURSE ---
Report to the Outpatient Waiting Room, entrance under the green pavilion located off [facility], at time __12:00PM on date ___10/05/24____. Planned Procedure Time: ___1:00PM .? Time changes happen often and if your time is changed the preop area will call you the afternoon before. - You and your visitor will be asked to self-screen and do not enter if you have any COVID symptoms. Please call surgeon if you need to reschedule. - A mask is optional within the hospital at this time. PATIENT MAY HAVE LIGHT BREAKFAST PRIOR TO COMING TO HOSPITAL ON DAY OF SURGERY. Take only the following medications with water on the morning of surgery: ALPRAZOLAM NEEDED. DO NOT STOP ANY OF YOUR OTHER PRESCRIPTION MEDICATIONS PRIOR TO SURGERY EXCEPT THE FOLLOWING Medications to discontinue per physician HOLD MELOXICAM 7 DAYS PRE-OP PER DR AVILA. Date to take last dose____09/27/24 Please no make-up, nail divehi, hairspray, perfume, deodorant, or body powder the day of surgery.? No jewelry (including any body piercings) or valuables the day of surgery, leave them at home.? Please take a shower or bath the night before, or the morning of, surgery with an antibacterial soap.? Wear comfortable, loose fitting clothing.? Children are encouraged to wear pajamas. - Jewelry must be removed prior to entering the operating room.? Rings and piercings that are not removed may be cut off. - The hospital will not accept responsibility for valuables.? - Please leave all valuables, including medications, at home the day of surgery. PATIENT MAY DRIVE SELF HOME FROM SURGERY.. Follow any additional instructions given to you from your surgeon. Telephone instructions given to PATIENT and asked if any additional questions and then verbalized understanding. Patient advised to call surgeon office or pre surgery nurse liaison [phone] if any additional questions.
--- NOTE | 2024-10-05 07:25 | WPDHPUPDATE1 ---
History and Physical Update Update Date/Time: 10/05/24 07:25 History and Physical has been reviewed, including an updated exam of the patient. There are NO changes in the patient's condition. Risks, benefits, and alternatives have been discussed and questions answered. Patient agrees to proceed with procedure.
[2024-10-05 12:15] VITALS: BP 137/64; PULSE 93; RESP 16; TEMP 36.6; O2SAT 100
[2024-10-05 13:10] VITALS: BP 139/81; PULSE 81; RESP 16; O2SAT 99
[2024-10-05] MEDS: BUPIVACAINE/EPINEPHRINE 0.5% 50 ML VIAL 20 ML INFILTRATE (13:18)
[2024-10-05 13:20] VITALS: BP 165/74; PULSE 80; RESP 16; O2SAT 99
[2024-10-05 13:30] VITALS: BP 162/76; PULSE 86; O2SAT 98
[2024-10-05 13:41] VITALS: BP 130/45; PULSE 90; RESP 16; O2SAT 97
[2024-10-05 14:08] VITALS: BP 138/75; PULSE 88
--- NOTE | 2024-10-05 16:08 | P.OP_ITS ---
Procedure Note - Detailed Date of Procedure 10/05/24 Pre-op Diagnosis Left Carpal Tunnel Syndrome Post-op Diagnosis Same Procedure Performed Left Carpal tunnel release Surgeon Dominik Holcomb MD Anesthesia Local Findings Sutures removed from the contralateral hand. Description of Procedure After sedation was administer, the hand was prepped and draped in the usual sterile fashion. The proposed incision was marked using typical anatomic landmarks. 10ML 0.5% Marcaine with epinephrine was injected along the incision line and at the distal forearm. The limb was exsanguinated and the tourniquet inflated to 225 millimeters of mercury. A longitudinal incision was taken sharply. Dissection was brought down to the transverse carpal ligament. Under direct vision the ligament was incised sharply. The proximal release was carried out with dissection scissors. The contents of the carpal canal were protected with a [place] elevator. The transverse carpal ligament was confirmed to be widely patent. The wound was closed with interrupted 3-0 Prolene suture. A sterile bulky dressing was placed. Patient was brought to the recovery room in stable condition. Estimated Blood Loss 1 Pathology None sent Complications No immediate complications Condition Stable Disposition PACU [facility] Billing Surgery - Charge Forward: Surgery Billing
== END 2024-10-05 14:16 | disposition home or self-care (01) ==
PROVIDERS: PCP Family Medicine; Visit Provider Orthopaedic Surgery
PROC: (CPT 64721; principal; 2024-10-05 13:00)
DX: G56.02 Carpal tunnel syndrome, left upper limb (principal)
CPT/HCPCS: 64721

== ENCOUNTER 2025-01-12 08:46 | Outpatient (CLI) | payer MEDICARE, SELFPAY ==
--- NOTE | ~2025-01-12 | XR_ITS ---
XR hip BI 2V w AP pelvis 01/12/2025 09:02 Indication: Left hip pain Procedure: AP pelvis and 2 views each hip Comparison: 05/01/2024 Findings: Pelvic rings are intact. There is mild osteoarthritis of the hips which is symmetric. No ly tic or blastic lesions. There is lower lumbar spondylosis partially visualized. Impression: 1: Mild bilateral symmetric osteoarthritis of the hips. Reviewed, dictated and finalized at location A. Impression: 1: Mild bilateral symmetric osteoarthritis of the hips.
--- OUTSIDE RECORDS SUMMARY | 2025-01-12 09:05 | XMS_ITS | Clinical Summary ---
Author Organization [facility] [employer] Address [address] [place] [address] Care Team Providers Care Stack Matcher Name Role Phone Sandeep Dumont MD Primary Care Provider [phone] Source Comments [facility] [employer],non-owned Affiliates and Associated Physician Practices is amultiple site organization consisting of ambulatory clinics and hospital sitesin [place], [place], [place] and [place]. This disclosure is being madepursuant to the Care Everywhere program and may not contain all information available regarding this patient. Last updated 18.[facility] [employer] Allergies Active Allergy Reactions Criticality Noted Date Comments Latex Unknown 08/13/2017 Medications * Be aware that medications may not be up to date on this document. Alwaysverify current medications with the patient. Medication Sig Dispensed Refills Start Date End Date Status [id number] P (SUDAFED PE NIGHTTIME COLD PO) Take 1 tablet by mouth as needed Active cetirizine (ZYRTEC ALLERGY) 10 MG gel capsule Take 10 mg by mouth once daily Active Active Problems Problem Noted Date Diagnosed Date Endometrial cancer 12/01/2018 S/P total hysterectomy and B SO (bilateral salpingo-oophorectomy) 12/01/2018 Obesity (BMI 30.0-34.9) 12/01/2018 Social History Tobacco Use Types Packs/Day Years Used Date Smoking Tobacco: Never Smokeless Tobacco: Never Alcohol Use Standard Drinks/Week Comments No 0 (1 standard drink = 0.6 oz pur e alcohol) Sex and Gender Information Value Date Recorded Sex Assigned at Not on file Gender Identity Not on file Sexual Orientation Not on file Last Filed Vital Signs Vital Sign Reading Time Taken Comments Blood Pressure 140/88 11/30/2019 9:10 AM [employer] Pulse 81 06/17/2015 10:26 AM CDT Temperature - - Respiratory Rate - - Oxygen Saturation - - Inhaled Oxygen Concentration - - Weight 106.1 kg (234 lb) 11/30/2019 9:10 AM [employer] Height 165.1 cm (5' 5 ) 11/30/2019 9:10 AM [employer] Body Mass Index 38.94 11/30/2019 9:10 AM [employer] Plan of Treatment Health Maintenance Due Date Last Done Comments BONE DENSITY TESTING 1955 COLOGUARD (AGES 45-75) - COL ON CA SCREENING 1955 COLON MONITORING 1953 COLONOSCOPY - COLON CA SCREENING 1953 CT COLONOGRAPHY - COLON CA SCREENING 1955 Colorectal Cancer Screening 1955 FIT - COLON CA SCREENING 1953 FLEX SIG - COLON CA SCREENING 1953 LIPID TESTING 1955 MEDICARE AWV 12 MONTHS 1953 HEPATITIS C SCREENING 03/25/1971 DTAP/TDAP/TD VACCINES (1 - Tdap) 1972 PNEUMOCOCCAL VACCINE 50+ (1 of 1 - PCV) 2003 ZOSTER VACCINE (1 of 2) 2003 SCREENING FOR DIABETES 12/01/2018 06/17/2015 MAMMOGRAM 12/12/2020 12/12/2018, 12/02/2018 COVID-19 VACCINE ( - 2023-2 5 season) 2024 INFLUENZA VACCINE (#1) 2024 DEPRESSION SCREENING 10/18/2024 Respiratory Syncytial Virus (RSV) Vaccine Pt: or over 60 yrs (1 - 1-dose 75+ series) 2028 HEPATITIS B VACCINE Aged Out No longe r eligible based on patient's age to complete this topic HIB VACCINE Aged Out No longer eligi ble based on patient's age to complete this topic HPV VACCINE Aged Out No longer eligi ble based on patient's age to complete this topic MENINGOCOCCAL (Group B) VACCINE SHARED DECISION-MAKING Aged Out No longer eligible based on patient's age to complete this topic MENINGOCOCCAL GROUPS A/C/Y/W VACCINE Aged Out No longer eligible b ased on patient's age to complete this topic Procedures Procedure Name Priority Date/Time Associated Diagnosis Comments MAMMOGRAM 12/12/2018 12:53 PM [employer] BASIC METABOLIC PANEL (CALCIUM TOTAL) Routine 06/17/2015 1:45 PM CDT Encounter for preoperative examination for general surgical procedure from Last 3 Months or Most Recently Relevant to Health Maintenance Results * MAMMOGRAM (12/12/2018 12:53 PM [employer]) Anatomical Region Laterality Modality Other Narrative 12/12/2018 12:53 PM [employer] Ordered by an unspecified provider. Scanned Document SCANNING ONLY * BASIC METABOLIC PANEL (CALCIUM TOTAL) (06/17/2015 1:45 PM CDT) Glucose 95 74 - 106 mg/dL 06/17/2015 2:38 PM CDT [facility] Sodium 141 136 - 145 mmol/L 06/17/2015 2:38 PM CDT [facility] Potassium 4.4 3.5 - 5.1 mmol/L 06/17/2015 2:38 PM CDT [facility] Chloride 107 98 - 107 mmol/L 06/17/2015 2:38 PM CDT [facility] CO2 29 22 - 31 mmol/L 06/17/2015 2:38 PM CDT [facility] Calcium 9.5 8.5 - 10.1 mg/dL 06/17/2015 2:38 PM CDT [facility] Anion Gap 5 5 - 20 mmol/L 06/17/2015 2:38 PM CDT [facility] BUN 12 7 - 21 mg/dL 06/17/2015 2:38 PM CDT [facility] Creatinine 0.73 0.50 - 1.30 mg/dL 06/17/2015 2:38 PM CDT [facility] eGFR by MDRD >60 >60 mL/min/1.7 3m2 06/17/2015 2:38 PM CDT [facility] eGFR by MDRD >60 >60 mL/min/1.7 3m2 06/17/2015 2:38 PM CDT [facility] Blood BLOOD SPECIMEN / Unknown Lab Venipuncture / Unknown 06/17/2015 1:45 PM CDT 06/17/2015 1:50 PM CDT Jaron Ross MD LAB - CHEMISTRY CRISTIN [place] Organization Address City/State/ZIP Co de Phone Number [facility] [address] [place] [address] from Last 3 Months or Most Recently Relevant to Health Maintenance Care Teams Stack Matcher Relationship Specialty Start Date End Date Sandeep Dumont MD PCP - General 04/12/18
--- OUTSIDE RECORDS SUMMARY | 2025-01-12 09:05 | XMS_ITS | Referral Summary ---
Author Organization [facility] Address [address] [place] [address] Care Team Providers Care Cash Clerk Name Role Phone Saroj Gustafson MD Unavailable [phone] Sandeep Dumont MD Primary Care Provider [phone] Saroj Gustafson MD Unavailable [phone] Allergies Active Allergy Reactions Criticality Noted Date Comments Adhesive Rash Medium 05/27/2021 Latex Rash Medium 08/13/2017 Medications fluticasone propionate (FLONASE) 50 mcg/actuation nasal sprayIndication s:Allergic Rhinitis Administer 2 sprays into each nostril as needed 1 Active cetirizine (ZyrTEC) 10 mg tabletIndicatio ns:Seasonal Allergic Rhinitis Take 10 mg by mouth nightly Active acetaminophen (TYLENOL) 500 mg tabletIndicatio ns:Pain Take 1,000 mg by mouth as needed for pain Active pseudoephedrine (SUDAFED) 60 mg tabletIndicatio ns:Nasal Congestion Take 120 mg by mouth nightly Active ibuprofen (ADVIL,MOTRIN) 200 mg tab/cap Take 200 mg by mouth every 6 (six) hours as needed for pain Active oxyCODONE (ROXICODONE) 5 mg immediate release tabletIndicatio ns:Pain Take 1 tablet (5 mg total) by mouth every 4 (four) hours as needed for pain for up to 10 doses 10 tablet 1 Active Active Problems Problem Noted Date Diagnosed Date Nipple discharge, bloody 04/02/2021 Immunizations Immunization Administration Dates Next Due Pfizer SARS-CoV-2 Monovalent Vaccination (12+ Yrs) PURPLE 12/12/2020 Social History Tobacco Use Types Packs/Day Years Used Date Smoking Tobacco: Never Smokeless Tobacco: Never AUDIT-C Answer Date Recorded Q1: How often do you have a drink containing alc ohol? 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 Gender Identity Not on file Sexual Orientation Straight 04/02/2021 9: 44 AM CDT Last Filed Vital Signs Vital Sign Reading Time Taken Comments Blood Pressure 124/69 06/10/2021 12:10 PM CDT Pulse 74 06/10/2021 12:10 PM CDT Temperature 36 C (96.8 F) 06/10/2021 11:30 AM CDT Respiratory Rate 18 06/10/2021 12:10 PM CDT Oxygen Saturation 98% 06/10/2021 12:10 PM CDT Inhaled Oxygen Concentration - - Weight 99.8 kg (220 lb 0.3 oz) 06/25/2021 2:26 P M CDT Height 165.1 cm (5' 5 ) 06/25/2021 2:26 PM CDT Body Mass Index 36.61 06/25/2021 2:26 PM CDT Plan of Treatment Not on file Insurance MEDICARE [facility] TRADITIONAL MEDICARE [facility] TRADITIONAL Care Teams Cash Clerk Relationship Specialty Start Date End Date Sandeep Dumont MD [address] [place] [id number] PCP - General Family Medicine 03/14/21 Saroj Gustafson MD [address] [address] Referring Physician Obstetrics and Gynecology 03/12/21 Saroj Gustafson MD [address] [address] Referring Physician Obstetrics and Gynecology 04/02/21
--- OUTSIDE RECORDS SUMMARY | 2025-01-12 09:05 | XMS_ITS | Clinical Summary ---
Author Organization [facility] Address [address] [place] [address] Care Team Providers Care Regional Education Manager Name Role Phone Saroj Gustafson MD Unavailable [phone] Sandeep Dumont MD Primary Care Provider [phone] Saroj Gustafson MD Unavailable [phone] Allergies Active Allergy Reactions Criticality Noted Date [...] SARS-CoV-2 Monovalent Vaccination (12+ Yrs) PURPLE 12/12/2020 Surgical History Surgery Date Site/Laterality Comments CERVICAL FUSION BUNIONECTOMY TUBAL LIGATION HYSTERECTOMY VAGINA SURGERY 10/18/2014 - 10/17/2015 Medical History Medical History Date Comments History of paranasal sinus congestion Varicose vein of leg Chronic headaches Anxiety Family History Medical History Relation Name Comments Anesthesia problems Neg Hx Social History Tobacco Use Types Packs/Day Years [...] on file 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 Gender Identity Not on file Sexual Orientation Straight 04/02/2021 9: 44 AM CDT Obstetrics History Last Filed Vital Signs Vital Sign Reading [...] 06/25/2021 2:26 PM CDT Plan of Treatment Health Maintenance Due Date Last Done Comments Breast Cancer Screening-Mammogram 1955 Colon Cancer Screening-Colonoscopy 1955 Depression Screening 1955 Hepatitis C Screening 1955 Osteoporosis Screening-Bone Density Scan 1953 DTaP/Tdap/Td Vaccine (1 - Tdap) 1964 Hepatitis B Screening 1971 Zoster Vaccine (2 of 3) 12/14/2014 10/19/2014 Well Visit 65+ 2018 Pneumococcal vaccine 65+ (2 of 2 - PPSV23) 08/27/2021 08/27/2020 Fall Risk Assessment 06/10/2022 06/10/2021 Covid-19 Vaccine (2023-2 5 season) 2024 01/02/2021, 12/12/2020, 12/12/2020 Influenza Vaccine (#1) 2024 , 09/24/2017, 09/04/2014, Additional history exists Insurance [facility] MEDICARE [facility] TR[facility] Care Teams Regional Education Manager Relationship Specialty Start Date End Date Sandeep Dumont MD [address] [place] [id number] PCP - General Family Medicine 03/14/21 Saroj Gustafson MD [address] [address] Referring Physician Obstetrics and Gynecology 03/12/21 Saroj Gustafson MD [address] [address] Referring Physician Obstetrics and Gynecology 04/02/21
--- OUTSIDE RECORDS SUMMARY | 2025-01-12 09:05 | XMS_ITS | Continuity of Care Document ---
Author Organization [facility] Address [address] [place] [address] Phone Care Team Providers Care Store Host Name Role Phone Herrera OD, Ap Unavailable Unavailable Advance Directives Directive Yes / No Effective Date File Name No Information Encounters Encounter Description Practice Location Reason(s) For Visit Diagnoses Date Provider Providers Copied on Encounter [facility], [address], [place], [place], [id number], [place] tel:[phone] [facility] No Information Dec-0 3-200 4 Hrerera OD Ap. [address] , [address], [place], [address], [place]. tel:[phone] Family History Family Member Type Diagnosis Age At Onset No Information Payers Payer name Insurance type Covered democrat ID Authoriza tion(s) No Information Social History Type Description Quantity Date Captured Comments Sex Female Smoking Status No Information Chief Complaint And Reason For Visit No Information Reason For Referral Reason For Referral No Information History Of Present Illness Encounter Date Complaint History Of Prese nt Illness No Information Functional Status Date Functional Assessmen t No Information Instructions Date Instruction Additional Infor mation No Information Assessments Type Assessment Date No Information Patient Care Teams Name Effective Dates (start - stop) Status Members No Information
[2025-01-12 09:39] LABS: Anion Gap 12 mmol/L (4-12); Blood Urea Nitrogen 16 mg/dL (7-17); Calcium 9.6 mg/dL (8.4-10.2); Carbon Dioxide 26 mmol/L (22-30); Chloride 105 mmol/L (98-107); Cholesterol 234 mg/dL (0-200); Estimated Glomerular Filt Rate > 60; Glucose 120 mg/dL (65-110); HDL Direct 48 mg/dL; Potassium 4.8 mmol/L (3.4-5.0); Sodium 143 mmol/L (137-145); Triglycerides 210 mg/dL (<150)
[2025-01-12 09:50] LABS: LDL Cholesterol Direct 111 mg/dL
[2025-01-12 09:56] LABS: Vitamin D 25 Hydroxy 31.5 ng/mL
[2025-01-12 10:44] LABS: Hemoglobin A1C 6.1 % (<5.7)
== END 2025-01-12 08:47 | disposition home or self-care (01) ==
PROVIDERS: PCP Nurse Practitioner Family; Visit Provider Nurse Practitioner Family
DX: E55.9 Vitamin D deficiency, unspecified (principal); E78.00 Pure hypercholesterolemia, unspecified; F32.1 Major depressive disorder, single episode, moderate; F41.9 Anxiety disorder, unspecified; M25.552 Pain in left hip; R73.09 Other abnormal glucose; Z13.1 Encounter for screening for diabetes mellitus; Z13.220 Encounter for screening for lipoid disorders; M16.0 Bilateral primary osteoarthritis of hip
CPT/HCPCS: 36415; 73521; 80048; 80061; 82306; 83036; 84443